=== PATIENT | female | born 1995 | race Two or more races ===

== ENCOUNTER 2016-10-01 13:16 | Emergency (ER) | payer SELFPAY ==
[~2016-10-01] VITALS: Ht 147.3 cm; Wt 68.0 kg
[2016-10-01 13:59] VITALS: BP 142/88
[2016-10-01 14:38] LABS: BASOPHILS % (AUTO) 0.7 % (0.0-2.0); EOSINOPHILS % (AUTO) 0.8 % (0.0-3.0); LYMPHOCYTES % (AUTO) 21.3 % (20.0-45.0); MEAN CORPUSCULAR HEMOGLOBIN 25.1 PG (27.0-31.0); MEAN CORPUSCULAR HGB CONC 31.9 G/DL (32.0-36.0); MEAN CORPUSCULAR VOLUME 79 FL (80-99); MEAN PLATELET VOLUME 5.5 FL (6.5-10.1); MONOCYTES % (AUTO) 4.7 % (1.0-10.0); NEUTROPHILS % (AUTO) 72.4 % (45.0-75.0); PLATELET COUNT 382 K/UL (150-450); RED BLOOD COUNT 5.13 M/UL (4.20-5.40); RED CELL DISTRIBUTION WIDTH 13.2 % (11.6-14.8); WHITE BLOOD COUNT 10.7 K/UL (4.8-10.8)
[2016-10-01 14:49] LABS: ACETAMINOPHEN < 10 ug/mL (10-30); ALANINE AMINOTRANSFERASE 20 U/L (3-33); ALBUMIN/GLOBULIN RATIO 1.3 (1.0-2.7); ALCOHOL < 10 mg/dL; ANION GAP 14 (5-15); ASPARTATE AMINO TRANSFERASE 14 U/L (5-40); CALCIUM 9.7 mg/dL (8.6-10.2); CARBON DIOXIDE 27 mEQ/L (20-30); CHLORIDE 99 mEQ/L (98-107); CREATININE 0.6 mg/dL (0.5-0.9); GLOMERULAR FILTRATION RATE > 60 mL/min (>60); HEMOLYSIS 1; POTASSIUM 4.1 mEQ/L (3.4-4.9); SODIUM 140 mEQ/L (135-145); TOTAL PROTEIN 7.6 g/dL (6.6-8.7)
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
[2016-10-01 17:20] VITALS: BP 135/86
[2016-10-01] MEDS ORDERED: LORazepam 0.5mg tab ORAL ONE (18:45)
[2016-10-01 23:12] VITALS: BP 126/78
[2016-10-02] MEDS ORDERED: ATIVAN0.5 MG ORAL (01:07)
[2016-10-02 01:30] VITALS: BP 121/77
[2016-10-02 01:37] VITALS: BP 121/77
== END 2016-10-02 01:37 | disposition home or self-care (01) ==
LOC: EMR 14:13
DX: R45.851 Suicidal ideations (principal); F43.9 Reaction to severe stress, unspecified
CPT/HCPCS: 36415; 80053; 80300; 81025; 85025; 99282; G0480; 80329